=== PATIENT | female | born 1960 | race Caucasian/White ===

== ENCOUNTER 2020-06-04 07:29 | Emergency (ER) | payer OTHER ==
[~2020-06-04] VITALS: Ht 160 cm; Wt 100.0 kg
[2020-06-04 07:36] VITALS: BP 159/95
== END 2020-06-04 09:55 | disposition home or self-care (01) ==
LOC: ER 07:29
DX: H57.89 Other specified disorders of eye and adnexa (principal)
CPT/HCPCS: 99283